=== PATIENT | female | born 1965 | race Caucasian/White ===

== ENCOUNTER → 2017-08-30 | Outpatient (CLI) | payer OTHER ==
[~2017-08-30] MED LIST: APAP650 PO; CALCIUM 500 +1 EAC5 PO; CHLORASEPTIC20 M1 PO; FLAGYL500 MG PO; IRON325 PO; LEVAQUIN 750 M750 MG PO; MAGNESIUM27 MG PO; TURMERIC500 M2 PO
== END ==
LOC: M.RAD 10:01
DX: Z12.31 Encounter for screening mammogram for malignant neoplasm of breast (principal)

== ENCOUNTER 2017-09-22 19:36 | Emergency (ER) | payer OTHER ==
[~2017-09-22] VITALS: Ht 177.8 cm; Wt 83.9 kg
[2017-09-22 19:57] VITALS: BP 141/72
== END 2017-09-22 19:58 | disposition home or self-care (01) ==
LOC: M.ERS 19:36
DX: T21.55XA Corrosion of first degree of buttock, initial encounter (principal); T32.0 Corrosions involving less than 10% of body surface; Z90.49 Acquired absence of other specified parts of digestive tract; Y93.89 Activity, other specified; Y92.89 Other specified places as the place of occurrence of the external cause; Y99.8 Other external cause status

== ENCOUNTER 2017-10-22 07:40 | Emergency (ER) | payer OTHER ==
[~2017-10-22] VITALS: Ht 170.2 cm; Wt 94.3 kg
[2017-10-22] MEDS ORDERED: CALCIUM 500 +1 EAC5 PO (07:46)
[2017-10-22] MEDS ORDERED: IRON325 PO (07:46)
[2017-10-22] MEDS ORDERED: MAGNESIUM27 MG PO (07:46)
[2017-10-22] MEDS ORDERED: TURMERIC500 M2 PO (07:47)
[2017-10-22 08:21] LABS: ABSOLUTE EOSINOPHILS 0.1 thou/uL (0.0-0.7); ABSOLUTE MONOCYTES 0.4 thou/uL (0.0-1.2); NUCLEATED RBCS 0 /100WBC; WBC 5.6 thou/uL (4.0-11.0)
[2017-10-22 08:28] LABS: ABSOLUTE BASOPHILS 0.1 thou/uL (0.0-0.2); ABSOLUTE NEUTROPHILS 4.1 thou/uL (1.6-8.1); ANION GAP 7 mmol/L (7-16); APTT 29.2 Seconds (25.0-31.3); BASOPHILS 0.9 %; BUN 8 mg/dL (7-18); CALCIUM 8.9 mg/dL (8.5-10.1); CHLORIDE 106 mmol/L (98-107); CO2 27 mmol/L (21-32); CREATININE 0.8 mg/dL (0.6-1.3); EOSINOPHILS 1.7 %; GLUCOSE 113 mg/dL (70-99); HEMATOCRIT 39.4 % (37.0-47.0); MCH 20.8 pg (26.0-34.0); MCHC 30.5 g/dL (28.0-37.0); MCV 68.1 fL (80.0-100.0); MPV 9.1 fl. (7.2-11.1); PLATELET COUNT* 309 thou/uL (150-400); POLYS 72.4 %; POTASSIUM 3.5 mmol/L (3.5-5.1); RBC 5.78 mil/uL (4.20-5.00); RDW-CV 28.6 % (10.5-14.5); SODIUM 140 mmol/L (136-145)
[2017-10-22 08:43] LABS: ALBUMIN 3.6 g/dL (3.4-5.0); ALKALINE PHOSPHATASE 90 U/L (46-116); LIPASE 136 U/L (73-393); NT-PRO BRAIN NAT PEPTIDE 85 pg/mL (<300); SGOT 16 U/L (15-37); SGPT 25 U/L (30-65); TOTAL BILIRUBIN 0.4 mg/dL (<0.1-1.0); TROPONIN-I LEVEL <0.06 ng/mL (<0.06)
[2017-10-22 09:00] LABS: ANISOCYTOSIS 3+; PLATELET ESTIMATE ADEQUATE; POLYCHROMASIA Occasional
[2017-10-22 09:01] LABS: HYPOCHROMASIA 3+; MACROCYTES 2+; MICROCYTES 3+; OVALOCYTES Occasional; POIKILOCYTOSIS 2+
[2017-10-22 10:37] VITALS: BP 112/56
--- NOTE | 2017-10-23 13:37 | EKG ---
[place] [address] ELECTROCARDIOGRAM REPORT Name: YODIT OCONNOR Room: [facility]#: [id number] Admission: 10/22/17 Attend Phys: Discharge: 10/22/17 Date of : 63 Report #: [id number] THIS REPORT FOR: //name// [facility] ED Test Date: 2017-10-22 Test Time: 09:46:56 Pat Name: YODIT OCONNOR Department: Room: Gender: F Cash Management Specialist: Julianna CHOPRA : 1965 Requested By: Farhan Hernandez Order Number: [id number] MD: Rashid Verduzco Measurements Intervals [place] Rate: 69 P: -1 TX: 160 QRS: 0 QRSD: 92 T: 7 QT: 404 QTc: 433 Interpretive Statements Sinus rhythm LVH by voltage No previous ECG available for comparison Electronically Signed On 10-23-2017 13:37:22 CDT by Rashid Verduzco [email or web address] <ELECTRONICALLY SIGNED> By: Rashid Verduzco MD, [facility] 10/23/17 1337 0946 0946 Rashid Verduzco MD, FACC /EPI
--- NOTE | 2017-10-23 13:37 | EKG ---
[place] [address] ELECTROCARDIOGRAM REPORT Name: YODIT OCONNOR Room: [facility]#: [id number] Admission: 10/22/17 Attend Phys: Discharge: 10/22/17 Date of : 63 Report #: [id number] THIS REPORT FOR: //name// [facility] ED Test Date: 2017-10-22 Test Time: 07:45:33 Pat Name: YODIT OCONNOR Department: Room: Gender: F Capacity Analyst: Julianna CHOPRA : 1965 Requested By: Farhan Hernandez Order Number: [id number] MD: Rashid Verduzco Measurements Intervals [place] Rate: 94 P: 34 VT: 153 QRS: 0 QRSD: 91 T: 4 QT: 360 QTc: 451 Interpretive Statements Sinus rhythm LVH by voltage No previous ECG available for comparison Electronically Signed On 10-23-2017 13:37:00 CDT by Rashid Verduzco [email or web address] <ELECTRONICALLY SIGNED> By: Rashid Verduzco MD, [facility] 10/23/17 1337 0745 0745 Rashid Verduzco MD, FACC /EPI
== END 2017-10-22 10:38 | disposition home or self-care (01) ==
LOC: M.ERS 07:40
PROVIDERS: Emergency Medicine Emergency Medical Services
DX: R00.2 Palpitations (principal); R42 Dizziness and giddiness; R06.02 Shortness of breath; Z90.49 Acquired absence of other specified parts of digestive tract

== ENCOUNTER → 2017-10-24 | Outpatient (CLI) | payer OTHER | LOC: M.CT 08:47 | DX: D25.9 Leiomyoma of uterus, unspecified (principal); K76.89 Other specified diseases of liver; D64.9 Anemia, unspecified ==

== ENCOUNTER 2017-12-28 11:13 | Inpatient (IN) | payer OTHER ==
[~2017-12-28] VITALS: Ht 177.8 cm; Wt 89.8 kg
[~2017-12-28 11:13] MED LIST changes: -APAP650 PO; -CHLORASEPTIC20 M1 PO; -FLAGYL500 MG PO; -LEVAQUIN 750 M750 MG PO
[2017-12-28 11:23] VITALS: BP 178/71
[2017-12-28 11:56] LABS: ABSOLUTE LYMPHOCYTES 0.9 thou/uL (0.8-5.3); ABSOLUTE MONOCYTES 0.8 thou/uL (0.0-1.2); ABSOLUTE NEUTROPHILS 3.8 thou/uL (1.6-8.1); BASOPHILS 0.7 %; EOSINOPHILS 0.6 %; HEMATOCRIT 43.4 % (37.0-47.0); HEMOGLOBIN 13.9 gm/dL (12.0-15.0); LYMPHOCYTES 16.3 %; MCHC 32.1 g/dL (28.0-37.0); MCV 77.8 fL (80.0-100.0); MONOCYTES 14.5 %; MPV 9.3 fl. (7.2-11.1); NUCLEATED RBCS 0 /100WBC; PLATELET COUNT* 296 thou/uL (150-400); POLYS 67.9 %; RBC 5.57 mil/uL (4.20-5.00); RDW-CV 23.7 % (10.5-14.5); WBC 5.6 thou/uL (4.0-11.0)
[2017-12-28 12:06] LABS: CALCIUM 8.6 mg/dL (8.5-10.1); CREATININE 0.7 mg/dL (0.6-1.3); POTASSIUM 3.4 mmol/L (3.5-5.1)
[2017-12-28 12:15] LABS: ALBUMIN 3.1 g/dL (3.4-5.0); TOTAL BILIRUBIN 0.3 mg/dL (<0.1-1.0); TOTAL PROTEIN 7.1 g/dL (6.4-8.2)
[2017-12-28 12:21] LABS: ANISOCYTOSIS 1+; PLATELET ESTIMATE ADEQUATE
[2017-12-28 14:04] LABS: URINE BILIRUBIN NEGATIVE (Negative); URINE BLOOD TRACE (Negative); URINE CLARITY CLEAR; URINE COLOR YELLOW; URINE GLUCOSE-RANDOM NEGATIVE (Negative); URINE KETONES 2+ (Negative); URINE LEUKOCYTES-REFLEX NEGATIVE (Negative); URINE NITRITE-REFLEX NEGATIVE (Negative); URINE PROTEIN NEGATIVE (Negative); URINE SPECIFIC GRAVITY <= 1.005 (1.005-1.030); URINE UROBILINOGEN 0.2 E.U./dl (0.2-1.0)
[2017-12-28 14:13] LABS: BACTERIA-REFLEX None Seen /HPF (None Seen); CASTS None Seen /LPF (None Seen); CRYSTALS None Seen /LPF (None Seen); SQUAMOUS 0-3 Few /LPF (0-3); URINE RBC 0-2 Rare /HPF (0-2); URINE WBC-REFLEX None Seen /HPF (0-5)
[2017-12-28 16:39] VITALS: BP 134/51
[2017-12-28 17:18] VITALS: BP 149/60
[2017-12-28 20:00] VITALS: BP 120/40
[2017-12-29 04:55] VITALS: BP 107/56
[2017-12-29 05:02] LABS: ABSOLUTE EOSINOPHILS 0.1 thou/uL (0.0-0.7); ABSOLUTE LYMPHOCYTES 0.9 thou/uL (0.8-5.3); ABSOLUTE MONOCYTES 0.6 thou/uL (0.0-1.2); ABSOLUTE NEUTROPHILS 1.9 thou/uL (1.6-8.1); BASOPHILS 0.8 %; EOSINOPHILS 1.8 %; HEMATOCRIT 39.6 % (37.0-47.0); HEMOGLOBIN 12.6 gm/dL (12.0-15.0); LYMPHOCYTES 25.3 %; MCH 25.1 pg (26.0-34.0); MCHC 31.8 g/dL (28.0-37.0); MCV 78.9 fL (80.0-100.0); MONOCYTES 18.3 %; MPV 9.1 fl. (7.2-11.1); NUCLEATED RBCS 0 /100WBC; PLATELET COUNT* 245 thou/uL (150-400); POLYS 53.8 %; RBC 5.01 mil/uL (4.20-5.00); RDW-CV 23.9 % (10.5-14.5); WBC 3.5 thou/uL (4.0-11.0)
[2017-12-29 05:25] LABS: CALCIUM 7.9 mg/dL (8.5-10.1); CREATININE 0.7 mg/dL (0.6-1.3); POTASSIUM 3.6 mmol/L (3.5-5.1)
[2017-12-29 07:45] VITALS: BP 104/43
[2017-12-29 08:03] LABS: ANISOCYTOSIS 2+; OVALOCYTES 1+; POLYCHROMASIA 1+
[2017-12-29 08:04] LABS: PLATELET ESTIMATE ADEQUATE; SCHISTOCYTES 1+
[2017-12-29 09:26] VITALS: BP 104/43
[2017-12-29 14:50] VITALS: BP 110/50
[2017-12-29 16:55] VITALS: BP 124/56
[2017-12-29 20:48] VITALS: BP 144/55
[2017-12-30] VITALS: BP 118/56
[2017-12-30 01:34] LABS: HEMATOCRIT 38.7 % (37.0-47.0); HEMOGLOBIN 12.3 gm/dL (12.0-15.0); MCH 24.9 pg (26.0-34.0); MCHC 31.7 g/dL (28.0-37.0); MCV 78.4 fL (80.0-100.0); MPV 8.9 fl. (7.2-11.1); NUCLEATED RBCS 0 /100WBC; PLATELET COUNT* 283 thou/uL (150-400); RBC 4.93 mil/uL (4.20-5.00); RDW-CV 23.3 % (10.5-14.5); WBC 7.8 thou/uL (4.0-11.0)
[2017-12-30 01:54] LABS: URINE BILIRUBIN 1+ (Negative); URINE BLOOD 3+ (Negative); URINE CLARITY CLEAR; URINE COLOR YELLOW; URINE GLUCOSE-RANDOM NEGATIVE (Negative); URINE KETONES 3+ (Negative); URINE LEUKOCYTES-REFLEX TRACE (Negative); URINE NITRITE-REFLEX NEGATIVE (Negative); URINE PROTEIN TRACE (Negative); URINE SPECIFIC GRAVITY 1.025 (1.005-1.030); URINE UROBILINOGEN 0.2 E.U./dl (0.2-1.0)
[2017-12-30 01:58] LABS: ALBUMIN 2.6 g/dL (3.4-5.0); CALCIUM 7.6 mg/dL (8.5-10.1); CREATININE 0.8 mg/dL (0.6-1.3); TOTAL BILIRUBIN 0.2 mg/dL (<0.1-1.0); TOTAL PROTEIN 6.2 g/dL (6.4-8.2)
[2017-12-30 02:01] LABS: ICTOTEST (BILI CONFIRMATORY) Positive (Negative); URINE REDUCING SUBSTANCE NEGATIVE (Negative)
[2017-12-30 02:23] LABS: ABSOLUTE LYMPHOCYTES 0.2 thou/uL (0.8-5.3); ABSOLUTE MONOCYTES 0.5 thou/uL (0.0-1.2); ABSOLUTE NEUTROPHILS 7.2 thou/uL (1.6-8.1)
[2017-12-30 02:24] LABS: PLATELET ESTIMATE ADEQUATE
[2017-12-30 02:26] LABS: ANISOCYTOSIS 2+; MICROCYTES 1+; POLYCHROMASIA 1+
[2017-12-30 02:57] LABS: CASTS None Seen /LPF (None Seen); MUCUS 0-3 Light strn/LPF (None Seen); SQUAMOUS 4-10 Moderate /LPF (0-3); URINE WBC-REFLEX 0-5 Rare /HPF (0-5)
[2017-12-30 02:58] LABS: CRYSTALS None Seen /LPF (None Seen)
[2017-12-30 04:15] VITALS: BP 127/52
[2017-12-30 08:00] VITALS: BP 141/44
--- NOTE | 2017-12-30 09:20 | OP ---
[facility] [address] [place] [address] OPERATIVE REPORT Name: YODIT OCONNOR Room: [address] IN M.R.#: [id number] Admission: 12/28/17 Attend Phys: Kenneth Friend Discharge: Date of : 63 Report #: [id number] THIS REPORT FOR: //name// CC: Gilberto Coffey DATE OF SERVICE: 12/29/2017 PREPROCEDURE DIAGNOSES: Retained foreign body in the small-bowel in the form of a pill camera, and small-bowel obstruction due to inflammation and stricture. POSTOPERATIVE DIAGNOSES: Retained foreign body in the small-bowel in the form of a pill camera, and small-bowel obstruction due to inflammation and stricture with possible Crohn's disease. FINDINGS: There was about 20 cm of the distal small bowel with multiple dense overlying adhesions, thickened bowel wall and mesentery, with an obvious stricture. The pill camera was identified in the specimen. SURGEON: Mayi Smith DO COSURGEON: Jose Argueta, PGY4. MEDICAL CENTER DIRECTOR: Aayush Blum MS3. OPERATION PERFORMED: Laparoscopic small-bowel resection with primary anastomosis, lysis of adhesions greater than 45 minutes. ANESTHESIA TYPE: General endotracheal and local. ESTIMATED BLOOD LOSS: 30. DRAINS: NG tube and Hsu catheter. SPECIMENS REMOVED: Distal small-bowel and pill camera. COMPLICATIONS: None. CONDITION: Stable. DISPOSITION: PACU to the floor. HISTORY OF PRESENT ILLNESS: The patient is a very pleasant 52-year-old female who has been following with Dr. Bolaños for anemia and bloody bowel movements. She underwent an EGD and colonoscopy with equivocal findings last week[place] [address] OPERATIVE REPORT Name: ELVINYODIT Room: [address] IN [facility].#: [id number] Admission: 12/28/17 Attend Phys: Kenneth Friend Discharge: Date of : 63 Report #: [id number] then underwent a pillcam study. She presented to Dr. Bolaños yesterday with increasing abdominal pain, nausea and bloating. She was sent to the ER where it was found that she had retained the pill camera and it appeared that there was an area of the distal small-bowel, which was very inflamed and causing stricture. The pill camera was identified in this area. She was then consented for a laparoscopic small-bowel resection, possible laparotomy, possible ostomy. Risks discussed included bleeding, infection, pain, scar formation, injury to intra-abdominal organs, need for an ostomy, need for open procedure and risks of general anesthesia. The patient understood these risks and elected to proceed. PROCEDURE: The patient was brought to the operating room. She was laid supine on the operating room table. SCDs were placed to bilateral lower extremities. Ancef and Flagyl were given in the perioperative period. General endotracheal anesthesia was induced by anesthesia without difficulty. NG tube was then also placed by Anesthesia. Hsu catheter was placed utilizing sterile technique. Abdomen was prepped and draped in standard sterile fashion. Timeout was performed to verify patient and procedure. A 10 mL of 0.5% Marcaine were injected in the infraumbilical area. An incision was made with #15 blade. Cautery was used for hemostasis. S retractors were used to visualize the fascia. Fascia was grasped and elevated between 2 Kochers. Fascia was incised using cautery. Peritoneum was gently entered using a Adrienne clamp. Finger was introduced into the abdomen to assure that there were no argenis-incisional adhesions, none were identified. Two stitches of 0 Vicryl placed on the fascia. Bianca trocar was introduced and secured with 0 Vicryl stitches. Abdomen was insufflated. The patient was placed head down. Camera was introduced and a brief anterior abdominal exploration was undertaken with findings of what appeared to be severe inflammation in a portion of the distal small bowel. The area was quite thickened with very dense mesentery. There were also multiple dense adhesions between the small-bowel and the omentum and the small-bowel and the ascending colon. There was approximately 8 cm of healthy-appearing terminal ileum distal to the area of inflammation. Two 5 mm trocars were introduced, one in the left lower quadrant, one in suprapubic area. The patient was placed left side down. Cecum was identified and gently mobilized towards the midline. Utilizing cautery, a portion of the white line of Toldt was taken down into the cecum, was easily mobilized to the midline. Cautery was then used to incise the medial portion of the mesentery along the small-bowel, taking care to avoid portion of healthy-appearing small bowel. Proximal and distal healthy margins were identified. The area of diseased small bowel appeared to be about 20 cm. I was unable to palpate the pill camera in the area due to again fairly severe inflammation of the small bowel. On the more proximal portion of the segment, there were multiple dense adhesions between the omentum and the small bowel. These were taken down with a combination of cautery and LigaSure dissection. I then identified multiple dense adhesions between the small-bowel and the ascending colon. Again using very careful and tedious dissection, these were taken down using a combination of LigaSure and scissor dissection until the entirety of the small-bowel was free from the right lower quadrant. Abdomen was [facility] [address] [facility] [place] [address] OPERATIVE REPORT Name: YODIT OCONNOR Room: [address] ADM IN M.R.#: [id number] Admission: 12/28/17 Attend Phys: Kenneth Friend Discharge: Date of : 63 Report #: [id number] then desufflated. Bianca trocar was removed. Our incision was extended using a #15 blade. Cautery was used for hemostasis. An Tarik wound protector was introduced. The small-bowel was then easily eviscerated. We began with the proximal portion. There was an easily identified transition zone from the healthy bowel to the inflamed bowel. A Adrienne clamp was used to make a window in the mesentery. The small-bowel was then clamped and stapled with a 60-mm blue ODALYS stapler without difficulty. The mesentery was then serially clamped and dissected utilizing LigaSure and the mesentery was quite inflamed and thickened due to the chronic inflammation. Once we reached the portion of the healthy distal bowel, again a window was made in the mesentery. Small-bowel was again clamped and stapled with a 60-mm blue load ODALYS stapler without difficulty. Specimen was then handed off. My student went to the back table and the small-bowel was opened using Metzenbaums and the pill camera was identified. This was all then handed off for permanent pathology. Hemostasis was assured on both of our stumps. Allis clamps were placed on corner of the staple lines. The corner of each staple line was transected using heavy curved scissors. A blue load 60 mm ODALYS stapler was introduced into each limb of the small-bowel and a [id number]-bvxm functional anastomosis was created without difficulty. Common enterotomy was gently opened and the interior of the small-bowel was inspected, there was no bleeding noted. Enterotomy was aligned using Allis clamps. Common enterotomy was then closed using a 60-mm TA stapler. Mesenteric defect was closed using interrupted stitches of 3-0 silk suture. Small-bowel was also reinforced using two stitches in a Lambert fashion of 3-0 silk sutures. Anastomosis appeared to be widely patent. The small-bowel was then allowed to return into the abdomen, Tarik cap was placed and the abdomen was reinsufflated. Camera was introduced. The right lower quadrant was irrigated until clear. Hemostasis was assured. Our new anastomosis was allowed to fall into its anatomical position. The colon was closely inspected. There was no sign of any injury from our dissection. Omentum was then brought down to cover the area of our dissection. Our 5-mm trocars were then removed without difficulty. There was no bleeding noted from the peritoneum. Abdomen was then completely desufflated. Tarik wound protector was removed. Kochers were placed on the fascia of our infraumbilical port. Fascia was then closed in an interrupted fashion with five stitches of 0 Vicryl in a noefua-rt-opabv fashion with excellent approximation of the fascia. An additional 10 mL of 0.5% Marcaine were injected in the fascia. This wound was closed in a layered fashion using deep and superficial stitches of 3-0 Vicryl in inverted interrupted fashion. All skin wounds were closed with 4-0 Monocryl. A total of 30 mL of 0.5% Marcaine were used to anesthetize the wounds. Wounds were then cleansed and covered with Mastisol, Steri-Strips, 4x4s, and a Tegaderm. The patient was then allowed to awaken from anesthesia, was [place]ub[place] [address] OPERATIVE REPORT Name: YODIT OCONNOR Room: [address] IN ..#: [id number] Admission: 12/28/17 Attend Phys: Kenneth Friend Discharge: Date of : 63 Report #: [id number] transported to the recovery room with no further difficulties. Counts were correct times 2 at the conclusion of the case. <ELECTRONICALLY SIGNED> By: Mayi Smith DO 12/30/17 0920 1345 1536Cemilee Smith DO /nt
[2017-12-30 16:33] VITALS: BP 148/56
[2017-12-30 20:00] VITALS: BP 122/58
[2017-12-31] VITALS: BP 138/57
[2017-12-31 04:00] LABS: HEMATOCRIT 37.4 % (37.0-47.0); HEMOGLOBIN 12.1 gm/dL (12.0-15.0); MCHC 32.3 g/dL (28.0-37.0); MCV 77.4 fL (80.0-100.0); MPV 9.4 fl. (7.2-11.1); RBC 4.82 mil/uL (4.20-5.00); RDW-CV 24.3 % (10.5-14.5); WBC 5.5 thou/uL (4.0-11.0)
[2017-12-31 04:30] VITALS: BP 121/60
[2017-12-31 04:45] LABS: ALBUMIN 2.3 g/dL (3.4-5.0); CALCIUM 7.8 mg/dL (8.5-10.1); CREATININE 0.7 mg/dL (0.6-1.3); MAGNESIUM 1.8 mg/dL (1.8-2.4); PHOSPHORUS* 2.1 mg/dL (2.5-4.9); POTASSIUM 3.8 mmol/L (3.5-5.1); TOTAL BILIRUBIN 0.2 mg/dL (<0.1-1.0); TOTAL PROTEIN 5.8 g/dL (6.4-8.2)
[2017-12-31 09:00] VITALS: BP 109/59
[2017-12-31 16:00] VITALS: BP 120/56
[2017-12-31 16:08] LABS: HEPATITIS B SURFACE AG Negative (Negative)
[2017-12-31 20:45] VITALS: BP 120/50
[2017-12-31 23:45] VITALS: BP 122/58
[2018-01-01 03:55] VITALS: BP 129/57
[2018-01-01 04:21] LABS: HEMOGLOBIN 12.5 gm/dL (12.0-15.0); MCH 25.1 pg (26.0-34.0); MCHC 32.2 g/dL (28.0-37.0); MCV 77.9 fL (80.0-100.0); MPV 9.2 fl. (7.2-11.1); RBC 5.01 mil/uL (4.20-5.00); WBC 5.2 thou/uL (4.0-11.0)
[2018-01-01 04:45] LABS: CALCIUM 8.3 mg/dL (8.5-10.1); CREATININE 0.7 mg/dL (0.6-1.3); MAGNESIUM 1.8 mg/dL (1.8-2.4); PHOSPHORUS* 3.5 mg/dL (2.5-4.9); POTASSIUM 3.9 mmol/L (3.5-5.1)
[2018-01-01 09:00] VITALS: BP 114/52
[2018-01-01] MEDS ORDERED: FLAGYL500 MG PO (10:22)
[2018-01-01] MEDS ORDERED: LEVAQUIN 750 M750 MG PO (10:23)
[2018-01-01] MEDS ORDERED: APAP650 PO (10:24)
[2018-01-01] MEDS ORDERED: CHLORASEPTIC20 M1 PO (10:25)
[2018-01-01 10:28] VITALS: BP 129/57
[2018-01-01 10:30] VITALS: BP 129/57
[2018-01-01 17:18] VITALS: BP 129/57
--- NOTE | 2018-01-07 10:06 | PATH ---
[address] [address] PATHOLOGY RPT PROCEDURE Name: ELVINYODIT Room: [address] IN M.R.#: [id number] Admission: 12/28/17 Date of : 63 Discharge: 01/01/18 Report #: [id number] Path Case #: [id number] [facility] Accession Number: [id number] . 01 Material submitted: . DISTAL SMALL BOWEL AND PILL CAMERA . 01 Clinician provided ICD-10: T18.3XXA . 01 Clinical history: . Retained foreign body with stricture of small bowel . 02 Diagnosis: Distal small bowel and pill camera: - Segment of benign small intestine with chronic active and transmural inflammation, ulceration, mural abscess formation and luminal stricturing typical of Crohn's disease, negative for dysplasia. - Seven benign, hyperplastic mesenteric lymph nodes. - Grossly identified pill camera. (RAUL:pit 01/01/2018) QTP/01/01/2018 . 02 Electronically signed: . Ismael Nesbitt MD, Pathologist NPI- [id number] . 01 Gross description: . The specimen is received in formalin, labeled "Yodit Mcnair, distal small bowel and pill camera". Received is an unoriented segment of small bowel measuring 19.3 cm in length and ranging in diameter from 2.5 to 3.3 cm. Both margins are stapled closed. The serosal surface is pale roblero to pink-roblero and smooth in appearance with a transmural linear defect measuring 4.7 cm, which is 4.6 cm from the closest stapled margin. This defect appears intentional in order to expose the interior and/or contents of the bowel. The attached mesenteric fat measures up to 3.6 cm in thickness. The specimen is opened along the antimesenteric line to reveal markedly edematous to ulcerated,light roblero mucosa with a cobblestone appearance. Adjacent to the linear defect, the small bowel is moderately strictured, causing a narrowing of the lumen down to 0.4 cm. Sectioning through the attached mesenteric fat reveals four readily identifiable lymph nodes ranging in size from 0.4 to 0.6 cm in maximum dimensions. . Also received within the specimen container is a PillCam measuring 2.7 cm in length by 1.2 cm in diameter, and is inscribed with "PillCam" and "SB3". A gross photograph is taken. The specimen is submitted representatively as follows: . [place] [address] PATHOLOGY RPT PROCEDURE Name: ELVINYODIT KETTY Room: [address] [place] [facility].#: [id number] Admission: 12/28/17 Date of : 63 Discharge: 01/01/18 Report #: [id number] Path Case #: [id number] A1-A2 both margins A3 environmental marketing representative section at linear defect A4 environmental marketing representative section through strictured area adjacent to linear defect A5-A6 additional environmental marketing representative cross-sections of specimen A7 intact lymph nodes. (CAA; 12/31/2017) QAC/QAC . 02 Pathologist provided ICD-10: K52.9, K63.3, T18.3XXA . 02 CPT . 455343, [id number] Specimen Comment: A courtesy copy of this report has been sent to Specimen Comment: [phone], , , . Specimen Comment: Report sent to ,DR TOLLIVER,DR NEVAREZ,DR NOGUERA Performed at: 01 [facility] [address], [place], [place] [id number] MD Benson Pham MD Phone: [phone] Performed at: 02 [facility] [place] [address], [place], [place] [id number] MD Ismael Nesbitt MD Phone: [phone]
== END 2018-01-01 17:20 | disposition home or self-care (01) | DRG 330 ==
LOC: M.ERS 11:13 → M.ORTHSURG 15:33 → M.TBA-ER 15:33 → M.ORTHSURG 16:51
PROVIDERS: Emergency Medicine; Family Medicine; Surgery; ADMIT Internal Medicine
DX: T18.3XXA Foreign body in small intestine, initial encounter (principal); K56.51 Intestinal adhesions [bands], with partial obstruction; K63.3 Ulcer of intestine; N39.0 Urinary tract infection, site not specified; R65.10 Systemic inflammatory response syndrome (SIRS) of non-infectious origin without acute organ dysfunction; E44.0 Moderate protein-calorie malnutrition; K50.90 Crohn's disease, unspecified, without complications; D50.9 Iron deficiency anemia, unspecified; X58.XXXA Exposure to other specified factors, initial encounter; Z98.891 History of uterine scar from previous surgery; Z90.49 Acquired absence of other specified parts of digestive tract; Y93.9 Activity, unspecified; Y92.89 Other specified places as the place of occurrence of the external cause; Y99.8 Other external cause status; Z82.69 Family history of other diseases of the musculoskeletal system and connective tissue; Z83.49 Family history of other endocrine, nutritional and metabolic diseases

== ENCOUNTER → 2018-12-26 | Outpatient (CLI) | payer OTHER ==
[~2018-12-26] MED LIST changes: +APAP650 PO; +CHLORASEPTIC20 M1 PO; +FLAGYL500 MG PO; +LEVAQUIN 750 M750 MG PO
== END ==
LOC: M.RAD 16:22
DX: Z12.31 Encounter for screening mammogram for malignant neoplasm of breast (principal)